=== PATIENT | male | born 1965 | race Caucasian/White ===

== ENCOUNTER 2018-11-12 07:35 | Day surgery (SDC) | payer OTHER ==
[2018-11-12] MEDS ORDERED: MIDAZOLAM 1 MG/ML 2 ML INJ ×2 (10:15)
[2018-11-12] MEDS ORDERED: FENTAnyl 50 MCG/ML VIAL (10:15)
== END 2018-11-12 11:13 | disposition home or self-care (01) ==
LOC: GIL 07:35
DX: Z12.11 Encounter for screening for malignant neoplasm of colon (principal); K64.4 Residual hemorrhoidal skin tags; K57.30 Diverticulosis of large intestine without perforation or abscess without bleeding; D12.2 Benign neoplasm of ascending colon; E78.5 Hyperlipidemia, unspecified
CPT/HCPCS: 45380; 88305